=== PATIENT | male | born 1995 | race Caucasian/White ===

== ENCOUNTER 2023-08-24 18:11 | Emergency (ER) | payer BC, SELFPAY ==
[2023-08-24 18:11] VITALS: BP 142/79; PULSE 71; RESP 14; TEMP 36.1; O2SAT 100; BMI 29.8
--- NOTE | 2023-08-24 18:47 | EDS_ITS ---
HPI <JASMYNE Hernandez - Last Filed: 08/24/23 19:14> History of Present Illness Chief Complaint: Upper Extremity Injury Narrative Narrative: Patient is a 27-year-old male with no significant medical history presents to the emerged part with left shoulder pain. 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 He is right-hand dominant, patient presents with pain for the last 3 to 4 days. Patient states it is difficult to describe, states it hurts whenever it is in motion doing his job. When the patient is sitting there he states the pain is minimal. He denies any nausea or vomiting, denies any falls. PFSH <JASMYNE Hernandez - Last Filed: 08/24/23 19:14> [facility] Home Medications ?Medication ?Instructions ?Recorded ?Last Taken ?Type naproxen 500 mg tablet (Naprosyn) 500 mg PO BID PRN pain #20 tabs 08/24/23 Unknown Rx Allergy/AdvReac Type Severity Reaction Status Date / Time No Known Allergies Allergy Verified 08/24/23 18:14 Social History Smoking Status: Never smoker ROS <JASMYNE Hernandez - Last Filed: 08/24/23 19:14> ROS ED ROS Narrative Constitutional: Negative for fever, chills, weight loss, weakness Eyes: Negative for vision loss, vision change, double vision ENT: Negative for any sore throat, ear pain, congestion Cardiovascular: Negative for any chest pain, tightness, palpitations Respiratory: Negative for any cough, sputum production, hemoptysis, dyspnea, dyspnea on exertion, orthopnea Gastrointestinal: Negative for any abdominal pain, nausea, vomiting, diarrhea, constipation, blood in stool, blood in vomit : Negative for any urinary frequency, dysuria, retention, blood in urine Muscle skeletal: Negative for any neck pain, back pain. Positive for left shoulder pain Neurological: Negative for any headache, syncope, dizziness Skin: Negative for any rashes, itching, abrasions, lacerations Psychiatric: Negative for any depression, anxiety, stress, suicidal ideation, homicidal ideation Hematologic: Negative for any excessive bruising, easy bleeding EXAM <JASMYNE Hernandez - Last Filed: 08/24/23 19:14> Physical Exam Narrative Exam Narrative: Vital signs reviewed. HEET: Head normocephalic atraumatic, TMs clear bilaterally. Posterior pharynx is clear, moist mucous membranes. Nares clear bilaterally. Neck: Supple with no lymphadenopathy or tenderness. No signs of meningismus. Cardiac: Regular rate and rhythm no murmurs gallops or rubs, equal peripheral pulses bilaterally. Respiratory: Lungs clear to auscultation bilaterally. No chest tenderness. Abdomen: Soft, nontender, nondistended. No abdominal bruit or pulsatile masses. No hepatosplenomegaly Extremities: No peripheral edema, no signs of gross trauma or deformity. Active full range of motion of all extremities. Patient has minimal pain to the anterior posterior shoulder. Patient has good strength throughout exercises. No significant abnormality Neuro: Cranial nerves II through XII intact, no focal neurological deficits. Skin: Clean dry and intact with no rash, purpura, petechiae, vesicles or pustules. Backs/flank: No CVA tenderness, no midline spinal tenderness, no deformity. Psych: Normal mood and affect. No SI, HI or acute psychosis. Const Vital Signs: 08/24/23 18:11 Temperature 97 F L Temperature Source Temporal Pulse Rate 71 Respiratory Rate 14 Blood Pressure 142/79 H Blood Pressure Mean 100 Pulse Ox 100 Oxygen Delivery Method Room Air [facility] <JASMYNE Hernandez - Last Filed: 08/24/23 19:14> [facility] Treatment and Re-Evaluation Narrative: Differential diagnosis includes however is not limited to: Radicular cuff injury, labral injury, tendinitis, bursitis, overuse injury Patient appears to be in no obvious distress vital signs are stable, patient is nontoxic. Presenting to the emergency department with left shoulder pain has been ongoing for the last 3 to 4 days. X-rays were obtained, this was interpreted by the ER physician, these were negative for any acute process. Patient be diagnosed with left shoulder pain, possible tendinitis. Patient instructed to rest, ice, use anti-inflammatories. Patient will follow-up with orthopedics. Patient struck to return for any worsening symptoms, stable for discharge. <Dr. Jonathan Burk DO - Last Filed: 08/24/23 23:20> [facility] Treatment and Re-Evaluation Narrative: Differential diagnosis includes however is not limited to: Radicular cuff injury, labral injury, tendinitis, bursitis, overuse injury Patient appears to be in no obvious distress vital signs are stable, patient is nontoxic. Presenting to the emergency department with left shoulder pain has been ongoing for the last 3 to 4 days. X-rays were obtained, this was interpreted by the ER physician, these were negative for any acute process. Patient be diagnosed with left shoulder pain, possible rotator cuff strain. Patient instructed to rest, ice, use anti-inflammatories. Patient will follow- up with orthopedics. Patient struck to return for any worsening symptoms, stable for discharge. Attending note: Patient seen and evaluated with account resolution specialist. I perform my own [id number] evaluation. I agree with the plan of work-up. [id number] intermittent pain posterior left shoulder. New job for the last 3 months with a lot of repetitive movement. No history of similar. No current pain. Last pain was yesterday evening. Exam negative Apley's negative empty can negative speeds test. No pain with internal or external rotation against resistance on pinpoints pain area posterior rotator cuffs. 2 view x-ray left shoulder inter myself and read. Shows no acute process. Discussed potential rotator cuff strain. Discussed exercises for his shoulder. He will be given follow-up orthopedics for outpatient evaluation. Discharge Plan Triage Chief Complaint: Upper Extremity Injury ED Midlevel Provider: Maciej Joshi ED Provider: Jonathan Burk Dx/Rx/DC Orders Clinical Impression: Shoulder arthralgia, Tendonitis Instructions: ED Tendonitis, ED RICE, ED Shoulder Pain, Uncertain Cause Prescriptions: New naproxen [Naprosyn] 500 mg tablet 500 mg PO BID PRN (Reason: pain) Qty: 20 0RF Stand Alone Forms: Work / School Excuse Primary Care Provider: Care Physician,No Primary Referrals: Yovanny Rojo DO [Med Staff - Active Staff] - Print Language: Russian Disposition Disposition: Home, Self Care Discharge Date/Time: 08/24/23 19:32
--- NOTE | 2023-08-24 18:53 | RAD_ITS ---
EXAM: XR LEFT SHOULDER COMPLETE, 2 OR MORE VIEWS CLINICAL INDICATION: shoulder pain TECHNIQUE: Two or more views of the left shoulder. COMPARISON: No relevant prior studies available. FINDINGS: BONES/JOINTS: Unremarkable. No acute fracture. No subluxation. Normal alignment. Preservation of the joint space. No sclerotic or destructive changes observed. SOFT TISSUES: Unremarkable. No soft tissue swelling or gas. No radiopaque foreign body. RAD/Shoulder min 2 Views IMPRESSION: Negative left shoulder x-rays. Electronically Signed: Ramesh Vera MD at 19:05 EDT ,
[2023-08-24 19:30] VITALS: BP 124/77; PULSE 71; RESP 16; TEMP 36.8; O2SAT 99
== END 2023-08-24 19:32 | disposition home or self-care (01) ==
LOC: ED 19:28
PROVIDERS: Emergency Provider Emergency Medicine; Visit Provider Emergency Medicine
DX: M25.512 Pain in left shoulder (principal); X50.3XXA Overexertion from repetitive movements, initial encounter; Y92.89 Other specified places as the place of occurrence of the external cause; M77.9 Enthesopathy, unspecified
CPT/HCPCS: 73030; 99282